=== PATIENT | female | born 1965 | race Caucasian/White ===

== ENCOUNTER 2018-07-18 09:00 | Outpatient (RCR) | payer BC, SELFPAY ==
--- NOTE | 2018-06-20 16:00 | PTTR_ITS ---
DATE: June 20, 2018 SUBJECTIVE: Marion reports that the intensity of the pain and radicular symptoms are continuing to reduce. She notes that she chickened out and did not return to the gym. She continues to perform her aquatic work outs without irritation. She purchased a cold pack from [employer]. OBJECTIVE: Manual therapy: (24298g3).Lumbo pelvic distractions via leg pull provided to the left LE. Soft tissue stretching of the hamstring, ITB, piriformis, and SKC followed by hook lying lumbar rotation. Transferred to prone to complete PA mobilization of the lower thoracic and lumbar levels. CFM to the paraspinals, and pelvic brim. TPR to the glut med and max with focus on left side. STM throughout the entire mid and low back including the gluteal musculature then followed with use of face cradle for comfort due to added soreness post last session with her neck in prone position. Ended with review of HEP and cryotherapy to the low back in prone with use of face cradle for comfort for 10 minutes. Will monitor her response to todays session. Held prone press ups today for she had added soreness post last session. Will continue to advance core stabilization with focus of TA activation. Direct treatment time: 35 minutes Total treatment time: 45minutes
--- NOTE | 2018-06-25 14:45 | PTTR_ITS ---
DATE: June 25, 2018 SUBJECTIVE: Marion reports that she went shopping on Sunday. She did a lot of walking and has noted increased tightness since primarily in her calf and hamstring. She reports that she did not return to the gym, and is definetely fearful of returning for she does not want to increase her symptoms. Remains compliant with her HEP. She has been engaging her TA more often. OBJECTIVE: Manual therapy: (39964h5).Soft tissue stretching to the left hamstring, ITB, piriformis, SKC and hook lying lumbar rotation. This followed with LE distraction. STM throughout the ITB, TFL, piriformis and gluteal musculature of the left side of primary focus. CFM to the pelvic brim. TPR to the glut med and piriformis. Therapeutic procedures (67207b1). * X See flow sheet: Continuing to encourage engagement of the TA with supine posturals including pelvic tilts, marching, bridge, and alternate arm/ leg. Increased awareness of her TA with improved breathing. * X Provided skilled instruction in proper exercise performance: avoiding compensatory movement patterns. * X Provided skilled manual cues to facilitate proper muscle recruitment and/ or movement pattern: Ended with cryotherapy to the low back and gluteal region in seated position for 10 minutes Direct treatment time: 30 minutes Total treatment time: 40 minutes
--- NOTE | 2018-06-27 16:00 | PTTR_ITS ---
DATE: June 27, 2018 SUBJECTIVE: Marion reports 75-80 % improvement. She notes that she has come muscle spasms following last session around her left knee. This subsided quickly. She notes overall improved ambulation distance. She notes Sunday/ are better for she does not have to travel to [place]. The increased sitting time is bothersome. She does not utilize a lumbar roll at this time. OBJECTIVE: Manual therapy: (58179j8). LE distraction via leg pull. Soft tissue stretching to the hamstring, ITB, piriformis, SKC, and hook lying lumbar rotation. This followed with STM in right side lying position to the entire left lateral thigh, gluteal musculature and into the low back. Therapeutic procedures (29972u8). * x Provided skilled instruction in proper exercise performance: promoting TA activation with posterior pelvic tilts, marching alt leg, bridging, and unilateral LE fallouts. Encouraged proper breathing and core engagement with verbal and tactile cues. * X Provided skilled manual cues to facilitate proper muscle recruitment and/ or movement pattern: Ended with cryotherapy to the low back in seated position for 10 minutes. Will monitor her response to todays session. Overall functional mobility improving. Less overall irritation. Will resume her gym work outs within tolerance and continue to advance within symptom allowance. Direct treatment time: 40 minutes Total treatment time: 50 minutes
--- NOTE | 2018-07-01 15:45 | PTTR_ITS ---
DATE: July 01, 2018 SUBJECTIVE: Marion notes that she continues to have her ups and downs. She is still avoiding the gym however is on vacation this week and will get back into the gym at some point. She notes that she took a fall the other night changing the batteries in her smoke alarm. She came down on her right side. She noted generalized aching however does not feel that she sustained any set back. She has done a lot of organizing in her home over the last couple of days which meant being in a standing stooped position for prolonged periods of time. It did not bother her at the time however had difficulty sleeping that night. OBJECTIVE: Manual therapy: (65753t9). Soft tissue stretching to bilateral LE to include hamstring, ITB, piriformis, and SKC. Hook lying lumbar rotation then provided. STM in right side lying position with focus on the left gluteal musculature into the low back and pelvic brim with CFM, and TPR. Therapeutic procedures (38273c5). * X See flow sheet: Progression of core stabilization via flow sheet incorporating standing posturals and cardiovascular endurance. * X Provided skilled instruction in proper exercise performance: promoting TA activation along with proper body mechanics and postural awareness. * X Provided skilled manual cues to facilitate proper muscle recruitment and/ or movement pattern: Ended with cryotherapy to the low back in seated position for 10 minutes. WIll monitor response to progression of todays session. Direct treatment time: 45 minutes Total treatment time: 55 minutes
--- NOTE | 2018-07-03 15:45 | PTTR_ITS ---
DATE: 07/03/18 SUBJECTIVE: Marion indicates that she held up well following last treatment session. She got back to the gym and was able to do treadmill without problems. She continues to note irritation into the hip, occasionally feels unstable, however overall feels she is making great progress. Night time still remains problematic, is not using a pillow between her legs. Recommend that she trial this to equalize her hips and spine at night. Manual therapy: (70409b8). Soft tissue stretching to the hamstring, single knee to chest, piriformis, ITB of L side, soft tissue mobilization both in supine and R sidelying position to the L. ITB, piriformis, glut med, glut max and into the lumbar paraspinals L sided. Trigger point work, cross friction massage also provided throughout this region. Therapeutic procedures (62683a8). Core stabilization with supine posturals, introduce clam shells for proximal hip stabilization with PA activation and good body awareness, avoiding any compensatory movements, both with verbal and tactile cueing. Completed stabilization via flow sheet. Continue with standing posturals, and global LE stabilization. Ended with cryotherapy post session in seated position. Direct treatment time: 45 mins Total treatment time: 55 mins, continue to advance and proceed accordingly with active symptoms, adjusting frequency, and advancement in stabilization. KW/dl
--- NOTE | 2018-07-08 15:35 | PTTR_ITS ---
DATE: July 08, 2018 SUBJECTIVE: Marion notes 75% improvement overall. She is still limited in her sitting tolerance in her car. She has not yet tried a lumbar roll. She also notes she is still not sleeping thru the night. However other than that she has noted reduction in frequency, intensity and notes minimal to no irritation of the nerve at this time. She reports at this time most of the pain is in the lateral hip and thigh. OBJECTIVE: Manual therapy: (14830f0).Soft tissue stretching to the hamstring, ITB, piriformis, and SKC. This followed with STM throughout the entire lateral hip and thigh in right side lying position with pillow in between knees for comfort. TPR and CFM to the greater trochanter also performed. STM to the left piriformis and gluteal musculature also performed. with significantly less irritation overall. Therapeutic procedures (27536s3). * X See flow sheet: Continued with supine and standing posturals with focus on activation and isolation of the TA. * X Provided skilled instruction in proper exercise performance: promoting body mechanics and postural awareness. * X Provided skilled manual cues to facilitate proper muscle recruitment and/ or movement pattern: Ended with cold pack to her low back post session in seated position. Will continue to advance strength and stabilization. Follows up with Dr. Castro at the end of this week. Will continue per his order. Question now if some of the symptoms might be from trochanteric bursitis and whether an injection might be beneficial. She is also concerned in regards to a work trip upcoming due to her intolerance to sitting. She is going to discuss this with him at that time. Direct treatment time: 45 minutes Total treatment time: 55 minutes
--- NOTE | 2018-07-11 15:45 | PTTR_ITS ---
DATE: July 11, 2018 SUBJECTIVE: Marion reports that her hip seems to be the primary complaint. She follows up with Dr. Castro tomorrow. She reports night time and with any prolonged sitting while driving to work the prime aggravators. She overall feels that she is doing more. She has returned to most of her normal work out regimen. However remains cautious in her movement patterns and of her posture and body mechanics with all ADL's. OBJECTIVE: Manual therapy: (32536x0).Soft tissue stretching to the left LE to include hamstring, ITB, piriformis and hook lying lumbar rotation. STM throughout the lateral thigh left with focus on the ITB and TFL. TPR and CFM also provided throughout this area. Transferred to right side lying position with pillow in between knees where STM of the gluteal and piriformis musculature was then provided. Therapeutic procedures (61343p0). * X See flow sheet: Core stabilization along with proximal hip strengthening encouraging TA activation * X Provided skilled instruction in proper exercise performance: promoting body mechanics and postural awareness * X Provided skilled manual cues to facilitate proper muscle recruitment and/ or movement pattern: Ultrasound - (x 8 mins) - 58060w0: 3 mgh 1.0 watt per cm sq at 100%duty cycle over the left greater trochanter provided prior to therex routine. Ended with cryotherapy to the left greater trochanter region in seated position. This was applied for 10 minutes. Patient is presenting at this time with reduced radicular symptoms. Continues to have some radiation down the leg at night however consistent with the ITB region. Very sensitive at this time over the greater trochanter. Question whether she might benefit from an injection at this time. Will continue per MD order following consultation tomorrow morning. Direct treatment time: 45 minutes Total treatment time: 55 minutes
--- NOTE | 2018-07-15 09:30 | PTTR_ITS ---
DATE: 07/15/18 SUBJECTIVE: Marion indicates she followed up with Dr. Castro on Sunday, it was very quick appt. He reports he still feels it is more sciatica, however did discuss the more centralized irritation to the lateral greater trochanter region. She does not have a follow up in 3 months, however she is to continue with her regiment of PT that is continuing to see improvements with. She also reports that she will not be traveling to [place] which she was afraid of due to her ongoing symptom level. Continues to do her regular work out in the pool, has not resumed her normal work out regimen at the gym, however she is noting definite improvements in her mobility, strength and pain level. Manual therapy: (15514e7). Soft tissue stretching of the L hamstring, ITB, piriformis, hook lying lumbar rotation. Soft tissue mobilization to lateral thigh, ITB, cross friction to greater troch, trigger beyer the piriformis, glut med, PA mobilization in prone to the lumbar spine to lumbar spine grade 2-3 followed by cross friction to the paraspinals, cross friction to the pelvic brim. Ultrasound 08658e2: Applied to greater trochanter 3mhz, 100% 1.0 w/cm2 for 8 mins. Therapeutic procedures (34717g6). Promoting core stabilization, proximal hip strength and stability, providing verbal and tactile cueing for proper isolation and avoidance of compensatory movement, promoting body mechanics and postural awareness. Ending with cryotherapy to the lateral hip, broad moist heat in seated position Direct treatment time: 50 mins Total treatment time: 60 mins KW/dl
--- NOTE | 2018-07-18 09:00 | PTTR_ITS ---
DATE: July 18, 2018 SUBJECTIVE: Marion does not feel that the ultrasound has been helping. She reports that she has cut back in her pool regimen and is not completing any exercise that includes jumping or running. She added some side stepping and feels that this caused her some increased irritation later that evening. OBJECTIVE: Manual therapy: (44889d9).Soft tissue stretching to the hamstring, ITB, piriformis, SKC and hook lying lumbar rotation. This followed with prone press ups with improved mobility post. STM to the lateral hip and thigh along with TPR and CFM. Therapeutic procedures (90557b6). * X See flow sheet: Continued progression of core stabilization and proximal hip strengthening. * X Provided skilled instruction in proper exercise performance: promoting proper body mechanics and postural awareness. * X Provided skilled manual cues to facilitate proper muscle recruitment and/ or movement pattern: 20 minutes of Wellness portion of program followed. Ended with cryotherapy to the lateral hip and thigh left and broad MHP to the low back for 10 minutes. Continues to present with sciatica irritation. Negative dural signs. Continue to promote core stabilizers and proximal hip stability as primary focus. Added prone press up to home regimen and will monitor her response to this. Direct treatment time: 30 minutes Total treatment time: 60 minutes
== END 2018-07-19 23:59 | disposition home or self-care (01) ==
LOC: PT 09:00
PROVIDERS: PCP Emergency Medicine; Referring Provider Emergency Medicine; Visit Provider Emergency Medicine
DX: M54.42 Lumbago with sciatica, left side (principal)
CPT/HCPCS: 97035; 97110; 97140

== ENCOUNTER → 2018-08-06 00:43 | Outpatient (CLI) | payer BC, SELFPAY ==
--- NOTE | 2018-08-06 08:00 | DI.MAMMO_ITS ---
SYMPTOM/DIAGNOSIS: SCREENING, Z12.31 MAMMOGRAMS: Mammograms were interpreted according to the usual protocol including computer analysis with CAD system, tomosynthesis and C view imaging. The breast tissue is primarily of fatty radiodensity. There is no demonstrated mass. There are no suspicious calcifications and there has been no significant interval change when compared with prior images. SUMMARY: No evidence of malignancy, Category 1. Yearly screening mammography is recommended. Breast density, category B. SA ASSESSMENT OF FINDINGS: Negative. Category 1. Patient will receive a letter notifying them of these results. BI-RADS category B. There are scattered areas of fibroglandular density.
== END ==
PROVIDERS: PCP Emergency Medicine; Visit Provider Obstetrics & Gynecology
DX: Z12.31 Encounter for screening mammogram for malignant neoplasm of breast (principal)
CPT/HCPCS: 77063; 77067

== ENCOUNTER 2018-10-28 10:04 | Outpatient (CLI) | payer BC, SELFPAY ==
--- NOTE | 2018-10-28 09:56 | DI.RAD_ITS ---
SYMPTOMS/DIAGNOSIS: LT HIP PAIN WITH NERVE SYMPTOMS LUMBAR SPINE: There are no prior comparison exams. The vertebral bodies are well maintained in height. There are endplate osteophytes which are most prominent in the lower thoracic level and at L 1 - 2. There is moderate narrowing of the L 1 - 2 disc with prominent endplate osteophytes. There is mild disc space narrowing at L 2 - 3 with small endplate osteophytes. Facet degenerative changes are seen greatest at L 3 - 4 through L 5 - S 1. No spondylolysis or spondylolisthesis is seen. The aorta shows calcification but is normal in diameter. There is tubing which may be related to a lap band procedure. IMPRESSION: Degenerative disc changes greatest at T 12 - L 1 and L 1 - 2.
--- NOTE | 2018-10-28 09:56 | DI.RAD_ITS ---
SYMPTOM/DIAGNOSIS: LEFT HIP PAIN PELVIC AND LEFT HIP: There are no prior comparison exams. The hip joint spaces are well maintained. There is moderate acetabular spurring on the left land mild spurring on the right. There is also somewhat prominent spurring at the iliac crest and greater trochanters as well as inferior S-I joins. An IUD is noted. Tubing is seen within the lower abdomen. IMPRESSION: Enthesopathy. No significant hip joint space narrowing.
== END 2018-10-28 10:24 ==
PROVIDERS: PCP Emergency Medicine; Visit Provider Physician Assistant
DX: M25.552 Pain in left hip (principal); M79.2 Neuralgia and neuritis, unspecified; M51.15 Intervertebral disc disorders with radiculopathy, thoracolumbar region
CPT/HCPCS: 72110; 73502

== ENCOUNTER 2019-06-06 12:17 | Outpatient (CLI) | payer BC, SELFPAY ==
--- NOTE | 2019-06-06 13:00 | DI.US_ITS ---
SYMPTOM/DIAGNOSIS: ACUTE DVT,I82.409, LT CALF AND POPLITEAL LEG PAIN, MILD EDEMA LEFT LOWER EXTREMITY ULTRASOUND: The deep veins of the left lower extremity were visualized sonographically. They show normal compression, augmentation and color flow. The common and femoral and popliteal veins were all interrogated. Posterior tibialis vein shows compression and augmentation. There is no evidence of a left lower extremity deep venous thrombus. IMPRESSION: No evidence of a left lower extremity deep venous thrombus.
[2019-06-06 13:25] LABS: D-Dimer 647 ng/mlFEU (<500)
== END 2019-06-06 12:37 ==
PROVIDERS: PCP Emergency Medicine; Visit Provider Emergency Medicine
DX: I82.409 Acute embolism and thrombosis of unspecified deep veins of unspecified lower extremity (principal); M79.662 Pain in left lower leg; R60.0 Localized edema
CPT/HCPCS: 36415; 85379; 93971

== ENCOUNTER 2019-06-12 01:24 | Outpatient (CLI) | payer BC, SELFPAY ==
--- NOTE | 2019-06-12 10:20 | DI.US_ITS ---
SYMPTOMS/DIAGNOSIS: LT POPLITEAL PAIN, LT LEG PAIN, M79.605 LEFT LOWER EXTREMITY ULTRASOUND: Comparison is made with [id number]. The femoral and popliteal veins and visualized calf veins are freely compressible. No thrombus is visualized. No abnormality is identified in the area of patient's pain. IMPRESSION: Negative left lower extremity ultrasound. No evidence of DVT.
[2019-06-12 12:28] LABS: D-Dimer 426 ng/mlFEU (<500)
[2019-06-12 12:33] LABS: C-Reactive Protein 0.06 mg/dL (0.0-0.3)
== END 2019-06-12 01:44 ==
PROVIDERS: PCP Emergency Medicine; Visit Provider Emergency Medicine
DX: M79.605 Pain in left leg (principal)
CPT/HCPCS: 36415; 85379; 86140; 93971

== ENCOUNTER 2019-06-13 08:46 | Outpatient (CLI) | payer BC, SELFPAY ==
[2019-06-13 11:21] LABS: Hemoglobin A1C 6.2 % (4.5-6.2)
[2019-06-13 11:25] LABS: Calculated LDL 101 mg/dL; Cholesterol 186 mg/dL (50-200); HDL Cholesterol 69 mg/dL (40-60); Triglyceride 82 mg/dL (30-150)
== END 2019-06-13 09:06 ==
PROVIDERS: PCP Emergency Medicine; Visit Provider Emergency Medicine
DX: E78.5 Hyperlipidemia, unspecified (principal); E66.9 Obesity, unspecified
CPT/HCPCS: 36415; 80061; 83721; 83036

== ENCOUNTER 2019-06-20 11:32 | Outpatient (CLI) | payer BC, SELFPAY ==
[2019-06-20 11:51] LABS: CREATININE 0.83 mg/dL (0.55-1.02)
--- NOTE | 2019-06-20 13:30 | DI.CT_ITS ---
SYMPTOMS/DIAGNOSIS: LEFT LEG EDEMA, R60.0 CT SCAN OF THE ABDOMEN AND PELVIS: CT scan of the abdomen and pelvis was performed following oral and intravenous contrast material. There are no priors for comparison. The lungs bases are clear. The liver is normal in size. No suspicious hepatic mass is seen. The portal, superior mesenteric and splenic veins are patent. The gallbladder is negative. No biliary ductal dilatation is present. There is fatty infiltration of the pancreas. The spleen and adrenal glands are unremarkable. The kidneys show normal and symmetric enhancement. Calcifications are seen in the left kidney. No obstruction is identified. The urinary bladder is intact. Note is made of an intrauterine device. There are multiple masses seen in the uterus likely reflecting fibroids. There is mild atherosclerosis of the abdominal aorta. No aneurysm dilatation is seen. There is no evidence of a retroperitoneal or obstructing mass. No significant abdominal or pelvic adenopathy, ascites or pneumoperitoneum is present. There are post surgical changes of gastric band procedure. There is diverticulosis of the colon but no evidence of acute diverticulitis. The bowel is otherwise unremarkable. Degenerative changes are seen in the spine. IMPRESSION: 1. No evidence of a suspicious abdominal or pelvic mass. 2. Uterine masses likely reflecting uterine fibroids. Intrauterine device in position. 3. Colonic diverticulosis. 4. Status post gastric banding procedure.
== END 2019-06-20 11:52 ==
PROVIDERS: PCP Emergency Medicine; Visit Provider Emergency Medicine
DX: M79.605 Pain in left leg (principal); R60.0 Localized edema; D25.9 Leiomyoma of uterus, unspecified; K57.30 Diverticulosis of large intestine without perforation or abscess without bleeding; Z97.5 Presence of (intrauterine) contraceptive device; Z98.84 Bariatric surgery status
CPT/HCPCS: 74177; 82565

== ENCOUNTER 2019-08-13 01:07 | Outpatient (CLI) | payer BC, SELFPAY ==
--- NOTE | 2019-08-13 08:45 | DI.MRI_ITS ---
EXAM: MR LUMBAR SPINE WO CLINICAL HISTORY: refractory left sciatica, chronic left-sided lumbago, M54.32,M54.42, G89.29, LT KN EE PAIN TECHNIQUE: Multiplanar multisequence MRI was performed. The examination was carried out according to the usual protocol. COMPARISON: No exams were available for comparison FINDINGS: Degenerative endplate changes are identified. There is no evidence of an acute fracture. The alig nment is anatomical. There is no evidence of abnormality involving the cord. Degenerative disc dise ase is noted at T12-L1 and there are spondylitic changes. There is no evidence of stenosis. Degener ative disc disease and spondylitic changes are also noted at L1-L2, there is no stenosis. At L2-L3, there are degenerative disc changes and spondylitic changes, no evidence of canal stenosis. Right fo raminal stenosis is demonstrated. At L3-4, there is evidence of degenerative disc disease and spondy litic changes, no evidence of stenosis. L4-5 and L5-S1 degenerative disc changes and spondylitic kathrine nges are noted, there is no evidence of stenosis at these levels. The soft tissues are unremarkable. IMPRESSION: Degenerative changes are demonstrated as described above. There is no evidence of significant spinal stenosis.
--- NOTE | 2019-08-13 16:25 | DI.VRAD_ITS ---
PROCEDURE INFORMATION: Exam: MR Lumbar Spine Without Contrast. Exam date and time: 08/13/2019 9:52 AM Clinical history: 54 years old, female; Pain; Lumbago with sciatica; Patient HX: Left sciatica, chronic left-sided lumbago, TECHNIQUE: Imaging protocol: Multiplanar magnetic resonance images of the lumbar spine without intravenous contrast. COMPARISON: CR XR lumbar spine complete 10/28/2018 10:18 AM FINDINGS: Vertebrae: Degenerative endplate marrow signal changes. No acute fracture. Alignment anatomic. Spinal cord: Normal signal. No cord compression. T12-L1: Degenerative disc and spondylitic changes. No stenosis. L1-L2: Degenerative disc and spondylitic changes. No stenosis. L2-L3: Degenerative disc and spondylitic changes. No central canal stenosis. Mild right foraminal stenosis. L3-L4: Degenerative disc and spondylitic changes. No stenosis. L4-L5: Degenerative disc and spondylitic changes. No stenosis. L5-S1: Degenerative disc and spondylitic changes. No stenosis. Soft tissues: Unremarkable. IMPRESSION: Degenerative changes as described. Dictated and Authenticated by: David Woodard MD. Ordering:LEFTY Thao MD
== END 2019-08-13 01:27 ==
PROVIDERS: PCP Emergency Medicine; Visit Provider Emergency Medicine
DX: M54.42 Lumbago with sciatica, left side (principal); M25.562 Pain in left knee; G89.29 Other chronic pain; M51.17 Intervertebral disc disorders with radiculopathy, lumbosacral region; M47.27 Other spondylosis with radiculopathy, lumbosacral region
CPT/HCPCS: 72148

== ENCOUNTER 2019-08-28 14:08 | Outpatient (CLI) | payer BC, SELFPAY ==
--- NOTE | 2019-08-28 14:00 | DI.RAD_ITS ---
EXAM: XR KNEE LT 4V AP,LAT,AUDRA,PAT INDICATION: lateral left knee pain with point tenderness m25.562 pain lt knee. COMPARISON: No exams were available for comparison TECHNIQUE: 2D digital imaging was performed. FINDINGS: Five views were obtained. Minimal hypertrophic degenerative changes are noted involving the tibial f emoral and patellofemoral joints. No other significant bony abnormality seen. IMPRESSION:
== END 2019-08-28 14:28 ==
PROVIDERS: PCP Emergency Medicine; Visit Provider Nurse Practitioner Family
DX: M25.562 Pain in left knee (principal)
CPT/HCPCS: 73564

== ENCOUNTER 2019-09-09 01:27 | Outpatient (CLI) | payer BC, SELFPAY ==
--- NOTE | 2019-09-09 12:10 | DI.MAMMO_ITS ---
EXAM: MG MAMMO SCREENING CLINICAL HISTORY: SCREENING, Z12.31 TECHNIQUE: Mammograms were interpreted according to the usual protocol including computer analysis w [employer] CAD system, tomosynthesis and C-view imaging. COMPARISON: [id number] FINDINGS: The breasts are composed of fatty density tissue, breast density category A. There are no suspicious masses or suspicious microcalcifications. There has been no significant change when compared with pr ior images. IMPRESSION: Category 1, negative mammogram. Routine yearly screening is recommended. BI-RADS Cat 1 - Negative Breast Density - Category A - Almost entirely fatty
== END 2019-09-09 01:47 ==
PROVIDERS: PCP Emergency Medicine; Visit Provider Obstetrics & Gynecology
DX: Z12.31 Encounter for screening mammogram for malignant neoplasm of breast (principal)
CPT/HCPCS: 77063; 77067

== ENCOUNTER 2020-06-04 09:19 | Outpatient (CLI) | payer BC, SELFPAY ==
[2020-06-10 22:26] LABS: SARS-CoV-2 RNA Undetected (Undetected); SARS-CoV-2 Specimen Source Nasopharynx
== END 2020-06-04 09:39 ==
PROVIDERS: PCP Emergency Medicine; Visit Provider Emergency Medicine
DX: Z11.59 Encounter for screening for other viral diseases (principal)
CPT/HCPCS: U0003

== ENCOUNTER 2020-09-13 00:34 | Outpatient (CLI) | payer BC, SELFPAY ==
--- NOTE | 2020-09-13 | DI.MAMMO_ITS ---
EXAM: MG MAMMO SCREENING CLINICAL HISTORY: SCREENING,Z12.31 TECHNIQUE: Mammograms were interpreted according to the usual protocol including computer analysis w [employer] CAD system, tomosynthesis and C-view imaging. COMPARISON: FINDINGS: The breasts are of moderate density with fairly symmetrical distribution of fibroglandular tissue. N o dominant mass or clumped microcalcification is identified in either breast. The current examinatio n is compared with previous examinations including August 2019 and there has been no gross interval change in appearance in comparison with previous studies. IMPRESSION: No specific evidence of malignancy at this time. Routine screening examinations are suggested at yea rly intervals due to the family history of breast carcinoma. BI-RADS Category 1 - Negative Breast Density - Category B - Scattered areas of fibroglandular density
== END 2020-09-13 00:54 ==
PROVIDERS: PCP Emergency Medicine; Visit Provider Obstetrics & Gynecology
DX: Z12.31 Encounter for screening mammogram for malignant neoplasm of breast (principal); Z80.3 Family history of malignant neoplasm of breast
CPT/HCPCS: 77063; 77067

== ENCOUNTER 2021-09-14 02:24 | Outpatient (CLI) | payer BC, SELFPAY ==
--- NOTE | 2021-09-14 08:50 | DI.MAMMO_ITS ---
Exam(s) MAMMO SCREENING EXAM: MAMMO SCREENING CLINICAL HISTORY: SCREENING, Z12.31. TECHNIQUE: Bilateral full field digital CC and MLO mammographic images were obtained with 3D tomosyn thesis and utilizing computer aided detection (CAD). COMPARISON: Prior mammograms dating back to 2011, the most recent being August 2020. FINDINGS: There are no new spiculated masses nor malignant appearing microcalcification groups. Unchanged benign-appearing microcalcifications are noted in the left breast. There is no significant architectural distortion nor skin thickening-retraction. IMPRESSION: Stable benign-appearing findings. No radiographic evidence of malignancy. BI-RADS Category 2 - Benign Findings Breast Density - Category B - Scattered areas of fibroglandular density Breast density Category C or D implies that the patient has dense breast tissue. Dense breast tissue can make it harder to find cancer on a mammogram. Dense breast tissue is also associated with an incr eased risk of breast cancer. This information about the result of the mammogram report was provided to the patient to raise their awareness. Use this report when you speak with the patient about their risks for breast cancer, which includes their family history. At that time, you may recommend additional screening tests (Ultrasoun d or MRI) as these tests may add significant information. A negative radiographic report should not delay biopsy if a dominant or clinically suspicious mass is present. Up to ten percent of cancers are not identified on mammography. A negative report may reinforce clinical impression. Adenosis and dense breasts may obscure an underlying neoplasm. False positive reports average 6 to 10%. Patient will receive a letter notifying them of these results.
== END 2021-09-14 02:44 ==
PROVIDERS: PCP Emergency Medicine; Visit Provider Obstetrics & Gynecology
DX: Z12.31 Encounter for screening mammogram for malignant neoplasm of breast (principal)
CPT/HCPCS: 77063; 77067

== ENCOUNTER → 2022-02-07 11:15 | Outpatient (CLI) | payer BC, SELFPAY ==
--- NOTE | 2022-02-07 10:22 | DI.RAD_ITS ---
Exam(s) XR KNEE RT 3V AP,LAT,AUDRA EXAM: XR KNEE RT 3V AP,LAT,AUDRA CLINICAL HISTORY: Fall with injury, rt knee injury, S89.91XA. TECHNIQUE: 2D digital imaging was performed. COMPARISON: CR XR KNEE LT 4V AP,LAT,AUDRA,PAT from 08/28/2019 FINDINGS: BONES: No acute fracture is present. No bony destructive lesion is seen. Enthesophyte patellar tend on insertion the greater tuberosity. Enthesophyte quadriceps insertion on upper pole of the patella. Spurring at the tibial spines, lateral femoral condyle and lateral tibial plateau. JOINTS: Mild lateral femoral tibial joint space narrowing. No joint effusion is seen. SOFT TISSUE: Small calcification lateral soft tissues. 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 No acute abnormality. DATA REPOSITORY: RADIATION DOSE DELIVERED:
== END ==
PROVIDERS: PCP Family Medicine; Visit Provider Nurse Practitioner Family
DX: M25.561 Pain in right knee (principal); M17.11 Unilateral primary osteoarthritis, right knee; S89.81XA Other specified injuries of right lower leg, initial encounter; W19.XXXA Unspecified fall, initial encounter; M76.891 Other specified enthesopathies of right lower limb, excluding foot
CPT/HCPCS: 73562

== ENCOUNTER 2022-03-17 09:27 | Outpatient (CLI) | payer BC, SELFPAY ==
[2022-03-17 13:00] LABS: BUN 17 mg/dL (7-18); CREATININE 0.9 mg/dL (0.55-1.02); Calcium 9.1 mg/dL (8.5-10.1); Calculated LDL 126 mg/dL (<100); Chloride 105 mmol/L (98-107); Cholesterol 197 mg/dL (<200); Glucose 113 mg/dL (74-106); HDL Cholesterol 50 mg/dL (40-60); Hemoglobin A1C 6.4 % (<5.7); Sodium 141 mmol/L (136-145); Triglyceride 109 mg/dL (<150)
== END 2022-03-17 09:28 | disposition home or self-care (01) ==
LOC: LOS 09:28
PROVIDERS: PCP Family Medicine; Visit Provider Family Medicine
DX: E78.5 Hyperlipidemia, unspecified (principal); I10 Essential (primary) hypertension; R73.9 Hyperglycemia, unspecified
CPT/HCPCS: 36415; 80048; 80061; 83036

== ENCOUNTER → 2022-09-26 02:31 | Outpatient (CLI) | payer BC, SELFPAY ==
--- NOTE | 2022-09-26 07:30 | DI.MAMMO_ITS ---
Exam(s) MAMMO SCREENING EXAM: MAMMO SCREENING CLINICAL HISTORY: SCREENING, Z12.31 TECHNIQUE: Bilateral full field digital CC and MLO mammographic images were obtained with 3D tomosyn thesis and utilizing computer aided detection (CAD). COMPARISON: Available for comparison. FINDINGS: Masses/Architectural Distortion: None seen. Microcalcifications: No suspicious pleomorphic-type are seen. Skin Thickening/Nipple Retraction: None. IMPRESSION: 1. No significant interval change with no specific features of malignancy noted. 2. Unless there is more urgent need, screening mammography is recommended, as per [employer] guidelines. BI-RADS Category 1 - Negative Breast Density - Category B - Scattered areas of fibroglandular density Breast density category C or D implies that the patient has dense breast tissue. Dense breast tissue is very common and is not abnormal but dense breast tissue can make it harder to find cancer on a ma mmogram. Also, dense breast tissue may increase their breast cancer risk. This information about the result of the mammogram report was provided to the patient to raise their awareness. Use this report when you speak with the patient about their risks for breast cancer, which includes their family hist ory. At that time, you may recommend for more screening tests (Ultrasound or MRI) as they might be us eful based on their risk. A negative radiographic report should not delay biopsy if a dominant or clinically suspicious mass is present. Up to ten percent of cancers are not identified on mammography. A negative report may reinforce clinical impression. Adenosis and dense breasts may obscure an underlying neoplasm. False positive reports average 6 to 10%. Patient will receive a letter notifying them of these results.
== END ==
PROVIDERS: PCP Nurse Practitioner Family; Visit Provider Obstetrics & Gynecology
DX: Z12.31 Encounter for screening mammogram for malignant neoplasm of breast (principal)
CPT/HCPCS: 77063; 77067

== ENCOUNTER 2023-05-07 13:08 | Outpatient (CLI) | payer BC, SELFPAY ==
--- NOTE | 2023-05-07 13:00 | RT.EKG_ITS ---
APPROVED REPORT Exam: Resting ECG Reason for Exam: patient request Patient Location: O HR:61 bpm ECG Measurements Heart Rate 61 AXIS ME [id number] P [id number] QRSd 102 QRS 70 QT 439 T 23 QTc 443 Conclusion Atrial fibrillation...V-rate 45- 82, irreg A-activity
== END 2023-05-07 13:09 | disposition home or self-care (01) ==
LOC: DI.CM 13:09
PROVIDERS: PCP Nurse Practitioner Family; Visit Provider Nurse Practitioner Family
DX: Z01.89 Encounter for other specified special examinations (principal)
CPT/HCPCS: 93010

== ENCOUNTER 2023-05-07 14:49 | Outpatient (CLI) | payer BC, SELFPAY ==
[2023-05-07 14:12] LABS: HCT 45.3 % (36.0-46.0); HGB 15.6 g/dL (11.2-15.7); MCH 30.2 pg (27.0-33.0); MCHC 34.4 % (32.0-36.0); MCV 88 fL (80-95); MPV 9.5 fL (8.0-11.0); Platelet Count 224 10^3/uL (130-400); RBC 5.16 10^6/uL (3.93-5.22); RDW 11.9 % (11.7-14.6); RDW-SD 37.9 fL; WBC 4.99 10^3/uL (4.4-10.8)
[2023-05-07 14:25] LABS: Hemoglobin A1C 6.3 % (<5.7)
[2023-05-07 14:48] LABS: ALT 43 U/L (14-59); AST 25 U/L (15-37); Albumin 3.7 g/dL (3.4-5.0); Alkaline Phosphatase 102 U/L (46-116); Anion Gap 6.9 mmol/L (3-11); BUN 18 mg/dL (7-18); Bilirubin, Total 0.8 mg/dL (0.2-1.0); CO2 27.1 mmol/L (21.0-32.0); CREATININE 0.8 mg/dL (0.55-1.02); Calcium 8.9 mg/dL (8.5-10.1); Calculated LDL 113 mg/dL (<100); Chloride 105 mmol/L (98-107); Cholesterol 184 mg/dL (<200); Estimated GFR 84.82 (mL/min/1.73m2); Glucose 108 mg/dL (74-106); HDL Cholesterol 51 mg/dL (40-60); Potassium 4.1 mmol/L (3.5-5.1); Sodium 139 mmol/L (136-145); TSH (W/Ref FT4) 2.75 uIU/mL (0.36-3.74); Total Protein 7.5 g/dL (6.4-8.2); Triglyceride 104 mg/dL (<150)
== END 2023-05-07 14:50 | disposition home or self-care (01) ==
LOC: LBO 14:51
PROVIDERS: PCP Nurse Practitioner Family; Visit Provider Nurse Practitioner Family
DX: I10 Essential (primary) hypertension (principal); E78.5 Hyperlipidemia, unspecified; R73.03 Prediabetes; I48.91 Unspecified atrial fibrillation
CPT/HCPCS: 36415; 80053; 80061; 85027; 83036; 84443

== ENCOUNTER → 2023-10-03 01:31 | Outpatient (CLI) | payer BC, SELFPAY ==
--- NOTE | 2023-10-03 | DI.MAMMO_ITS ---
Exam(s) MAMMO SCREENING EXAM: MAMMO SCREENING CLINICAL HISTORY: SCREENING,Z12.31. TECHNIQUE: Bilateral full field digital CC and MLO mammographic images were obtained with 3D tomosyn thesis and utilizing computer aided detection (CAD). COMPARISON: Prior mammograms were reviewed. FINDINGS: There has been no significant change in the appearance and distribution of the fibroglandular tissue. A few benign microcalcifications are again noted. There are no new spiculated masses nor malignant appearing microcalcification groups. There is no significant architectural distortion nor skin thickening-retraction. IMPRESSION: No radiographic evidence of malignancy. BI-RADS Category 1 - Negative Breast Density - Category B - Scattered areas of fibroglandular density Breast density Category C or D implies that the patient has dense breast tissue. Dense breast tissue can make it harder to find cancer on a mammogram. Dense breast tissue is also associated with an incr eased risk of breast cancer. This information about the result of the mammogram report was provided to the patient to raise their awareness. Use this report when you speak with the patient about their risks for breast cancer, which includes their family history. At that time, you may recommend additional screening tests (Ultrasoun d or MRI) as these tests may add significant information. A negative radiographic report should not delay biopsy if a dominant or clinically suspicious mass is present. Up to ten percent of cancers are not identified on mammography. A negative report may reinforce clinical impression. Adenosis and dense breasts may obscure an underlying neoplasm. False positive reports average 6 to 10%. Patient will receive a letter notifying them of these results.
== END ==
PROVIDERS: PCP Nurse Practitioner Family; Visit Provider Obstetrics & Gynecology
DX: Z12.31 Encounter for screening mammogram for malignant neoplasm of breast (principal)
CPT/HCPCS: 77063; 77067

== ENCOUNTER 2024-10-14 00:50 | Outpatient (CLI) | payer BC, SELFPAY ==
--- NOTE | 2024-10-14 16:07 | DI.MAMMO_ITS ---
Exam(s) MAMMO SCREENING EXAM: MAMMO SCREENING CLINICAL HISTORY: Screening, Z12.31 TECHNIQUE: Bilateral full field digital CC and MLO mammographic images were obtained with 3D tomosyn thesis and utilizing computer aided detection (CAD). COMPARISON: Available for comparison. FINDINGS: Masses/Architectural Distortion: None seen. Microcalcifications: No suspicious pleomorphic-type are seen. Skin Thickening/Nipple Retraction: None. IMPRESSION: 1. No significant interval change with no specific features of malignancy noted. 2. Unless there is more urgent need, screening mammography is recommended, as per [employer] guidelines. BI-RADS Category 1 - Negative Breast Density - Category A - Almost entirely fatty Breast density category C or D implies that the patient has dense breast tissue. Dense breast tissue is very common and is not abnormal but dense breast tissue can make it harder to find cancer on a ma mmogram. Also, dense breast tissue may increase their breast cancer risk. This information about the result of the mammogram report was provided to the patient to raise their awareness. Use this report when you speak with the patient about their risks for breast cancer, which includes their family hist ory. At that time, you may recommend for more screening tests (Ultrasound or MRI) as they might be us eful based on their risk. A negative radiographic report should not delay biopsy if a dominant or clinically suspicious mass is present. Up to ten percent of cancers are not identified on mammography. A negative report may reinforce clinical impression. Adenosis and dense breasts may obscure an underlying neoplasm. False positive reports average 6 to 10%. Patient will receive a letter notifying them of these results.
== END 2024-10-14 01:10 ==
PROVIDERS: PCP Nurse Practitioner Family; Visit Provider Obstetrics & Gynecology
DX: Z12.31 Encounter for screening mammogram for malignant neoplasm of breast (principal); R92.313 Mammographic fatty tissue density, bilateral breasts
CPT/HCPCS: 77063; 77067

== ENCOUNTER 2025-02-17 21:58 | Outpatient (REF) | payer BC, SELFPAY ==
[2025-02-17 22:53] LABS: Hemoglobin A1C 6.5 % (<5.7)
[2025-02-17 22:56] LABS: ALT 53 U/L (14-59); AST 28 U/L (15-37); Albumin 3.7 g/dL (3.4-5.0); Alkaline Phosphatase 104 U/L (46-116); Anion Gap 8.4 mmol/L (3-11); BUN 21 mg/dL (7-18); Bilirubin, Total 0.5 mg/dL (0.2-1.0); CO2 28.6 mmol/L (21.0-32.0); CREATININE 0.7 mg/dL (0.55-1.02); Calcium 9.5 mg/dL (8.5-10.1); Calculated LDL 132 mg/dL (<100); Chloride 108 mmol/L (98-107); Cholesterol 219 mg/dL (<200); Estimated GFR 98.34 (mL/min/1.73m2); Glucose 110 mg/dL (74-106); HDL Cholesterol 58 mg/dL (>or=50); Potassium 4.7 mmol/L (3.5-5.1); Sodium 145 mmol/L (136-145); Total Protein 6.8 g/dL (6.4-8.2); Triglyceride 146 mg/dL (<150)
[2025-02-19 10:16] LABS: HBs Antibody, Quant <3.1 mIU/mL (See Note); Hep B Surface Ab Negative (See Note); Hepatitis B Core Antibody Negative (Negative); Hepatitis B Surface Antigen Negative (Negative)
[2025-02-19 10:24] LABS: HIV-1/2 Ag & Ab Screen Negative (Negative)
[2025-02-19 10:34] LABS: Hepatitis C Ab w Rflx HCV PCR Negative (Negative)
== END 2025-02-17 21:59 | disposition home or self-care (01) ==
LOC: LBN 21:58
PROVIDERS: PCP Nurse Practitioner Family; Visit Provider Nurse Practitioner Family
DX: E78.2 Mixed hyperlipidemia (principal); Z11.4 Encounter for screening for human immunodeficiency virus [HIV]; Z11.59 Encounter for screening for other viral diseases; R73.03 Prediabetes
CPT/HCPCS: 80053; 80061; 86704; 86706; 86803; 87340; 87389; 83036

== ENCOUNTER 2025-07-02 03:49 | Outpatient (CLI) | payer BC, SELFPAY ==
[2025-07-02 12:05] LABS: Hemoglobin A1C 5.9 % (<5.7)
[2025-07-02 12:23] LABS: ALT 39 U/L (14-59); AST 21 U/L (15-37); Albumin 3.7 g/dL (3.4-5.0); Alkaline Phosphatase 91 U/L (46-116); Anion Gap 6.8 mmol/L (3-11); BUN 20 mg/dL (7-18); Bilirubin, Total 0.9 mg/dL (0.2-1.0); CO2 30.2 mmol/L (21.0-32.0); Calcium 9.2 mg/dL (8.5-10.1); Calculated LDL 108 mg/dL (<100); Chloride 105 mmol/L (98-107); Cholesterol 179 mg/dL (<200); Estimated GFR 83.78 (mL/min/1.73m2); Glucose 117 mg/dL (74-106); HDL Cholesterol 48 mg/dL (>or=50); Potassium 4.2 mmol/L (3.5-5.1); Sodium 142 mmol/L (136-145); Total Protein 7.0 g/dL (6.4-8.2); Triglyceride 115 mg/dL (<150)
[2025-07-02 19:37] LABS: Vitamin D 25 Total 18 ng/mL (30-100)
== END 2025-07-02 03:50 | disposition home or self-care (01) ==
LOC: LBO 03:49
PROVIDERS: Visit Provider Registered Nurse
DX: Z00.00 Encounter for general adult medical examination without abnormal findings (principal); R73.03 Prediabetes; E78.00 Pure hypercholesterolemia, unspecified; E56.9 Vitamin deficiency, unspecified
CPT/HCPCS: 36415; 80053; 80061; 82306; 83036

== ENCOUNTER → 2025-10-26 00:34 | Outpatient (CLI) | payer BC, SELFPAY ==
--- NOTE | 2025-10-26 07:53 | DI.MAMMO_ITS ---
Exam(s) MAMMO SCREENING EXAM: MAMMO SCREENING CLINICAL HISTORY: SCREENING MAMMO Z12.31 TECHNIQUE: Mammograms were interpreted according to the usual protocol including computer analysis with CAD system, tomosynthesis and C-view imaging. COMPARISON: 2015 through 2023 FINDINGS: The breasts are composed of mainly fatty density , Breast Density category A. No suspicious masses or suspicious microcalcifications are seen. No skin thickening or abnormal axillary lymph nodes are seen. There has been no significant change from prior exams. IMPRESSION: BI-RADS Category 1, Negative mammogram Yearly screening mammography is recommended. Breast Density- Category A - The breast are almost entirely fatty. Breast density Category C or D implies that the patient has dense breast tissue. Dense breast tissue can make it harder to find cancer on a mammogram. Dense breast tissue is also associated with an increased risk of breast cancer. This information about the result of the mammogram report was provided to the patient to raise their awareness. Use this report when you speak with the patient about their risks for breast cancer, which includes their family history. At that time, you may recommend additional screening tests (Ultrasound or MRI) as these tests may add significant information. A negative radiographic report should not delay biopsy if a dominant or clinically suspicious mass is present. Up to ten percent of cancers are not identified on mammography. A negative report may reinforce clinical impression. Adenosis and dense breasts may obscure an underlying neoplasm. False positive reports average 6 to 10%. Patient will receive a letter notifying them of these results.
== END ==
PROVIDERS: PCP Nurse Practitioner Family; Visit Provider Obstetrics & Gynecology
DX: Z12.31 Encounter for screening mammogram for malignant neoplasm of breast (principal)
CPT/HCPCS: 77063; 77067